=== PATIENT | male | born 2000 | race Native Hawaiian/Other Pacific Islander ===

== ENCOUNTER 2025-02-02 07:27 | Emergency (ER) | payer MEDICAID ==
[2025-02-02] MEDS: hydrOXYzine HCl 25 MG Tab PO ONE (08:33)
== END 2025-02-02 08:39 | disposition home or self-care (01) ==
LOC: JP.ED 07:27
DX: B65.3 Cercarial dermatitis (principal); Z79.899 Other long term (current) drug therapy; Z87.891 Personal history of nicotine dependence
CPT/HCPCS: 99282; A9270